=== PATIENT | female | born 1980 | race Two or more races ===

== ENCOUNTER 2017-01-31 12:20 | Emergency (ER) | payer MEDICARE, MEDICAID ==
[~2017-01-31] VITALS: Ht 160 cm; Wt 89.0 kg
[2017-01-31 12:22] VITALS: BP 145/81
[2017-01-31] MEDS ORDERED: ALBU05 IH (12:27)
[2017-01-31] MEDS ORDERED: PREDNISONE 20MG TABLET PO STA (13:32)
[2017-01-31] MEDS ORDERED: ALBUTEROL (0.083%) 2.5MG/3ML NEB HHN STA (13:32)
[2017-01-31] MEDS ORDERED: IPRATROPIUM BROMIDE (0.02%) 0.5MG/2.5ML NEB HHN STA (13:32)
== END 2017-01-31 15:53 | disposition home or self-care (01) ==
LOC: ER 14:00
DX: J45.901 Unspecified asthma with (acute) exacerbation (principal)
CPT/HCPCS: 94640; 99283; J7512; J7611

== ENCOUNTER 2017-06-28 19:34 | Emergency (ER) | payer MEDICARE, MEDICAID ==
[~2017-06-28] VITALS: Ht 160 cm; Wt 87.0 kg
[~2017-06-28 19:34] MED LIST: ALBU05 IH
[2017-06-28] MEDS ORDERED: HYDROCODONE/ACETAMINOPHEN 5/325MG TABLET PO ONE (23:15)
[2017-06-28 23:50] LABS: BASOPHILS % 0.5 % (0.0-2.0); EOSINOPHILS % 3.6 % (0.0-5.0); HEMATOCRIT. 38.4 % (36.0-48.0); HEMOGLOBIN. 13.3 g/dL (12.0-16.0); LYMPHOCYTES % 30.3 % (20.0-50.0); MEAN CORPUSCULAR HEMOGLOBIN 28.2 pg (28.0-32.0); MEAN CORPUSCULAR VOLUME 81.6 fL (81.0-99.0); MEAN PLATELET VOLUME 8.1 fl (7.4-10.4); MONOCYTES % 6.6 % (2.0-8.0); PLATELET 303 x1000/uL (130-400); RED BLOOD CELL COUNT 4.71 mill/uL (4.2-5.4); RED CELL DISTRIBUTION WIDTH 13.4 % (11.6-14.6)
[2017-06-28 23:56] LABS: CARBON DIOXIDE 28 mEq/L (21-32); CHLORIDE 109 mEq/L (98-107); TROPONIN I < 0.02 ng/mL (0.00-0.04)
[2017-06-29] MEDS ORDERED: KETOROLAC 30MG/ML VIAL IV NR (00:02)
[2017-06-29 00:17] VITALS: BP 122/80
== END 2017-06-29 01:09 | disposition home or self-care (01) ==
LOC: ER 22:33
DX: M94.0 Chondrocostal junction syndrome [Tietze] (principal); J45.909 Unspecified asthma, uncomplicated; F11.10 Opioid abuse, uncomplicated; Z98.890 Other specified postprocedural states
CPT/HCPCS: 36415; 71010; 80048; 81025; 84484; 85025; 85379; 93005; 96374; 99285; J1885